=== PATIENT | female | born 1960 | race Caucasian/White ===

== ENCOUNTER 2018-02-03 15:30 | Emergency (ER) | payer OTHER ==
[~2018-02-03] VITALS: Ht 162.6 cm; Wt 58.1 kg
[~2018-02-03 15:30] MED LIST: PREDNISONE5 MG/DOSE- PO; TRAMADOL HCL50 MG PO
[2018-02-03] MEDS ORDERED: ADVIL200 MG (15:42)
== END 2018-02-03 18:04 | disposition home or self-care (01) ==
LOC: ER 15:30
DX: S92.415A Nondisplaced fracture of proximal phalanx of left great toe, initial encounter for closed fracture (principal); W22.8XXA Striking against or struck by other objects, initial encounter; Y93.89 Activity, other specified; Y92.89 Other specified places as the place of occurrence of the external cause; Y99.8 Other external cause status; R51 Headache; R42 Dizziness and giddiness; H92.02 Otalgia, left ear